=== PATIENT | male | born 1940 | race Caucasian/White ===

== ENCOUNTER → 2017-05-23 | Outpatient (CLI) | payer OTHER ==
[~2017-05-23] VITALS: Ht 175.3 cm; Wt 90.7 kg
--- NOTE | ~2017-05-23 | S ---
[facility] [place] [address] [place] [address] SURGICAL PATH RPT PROCEDURE Name: FILEOMN ECHOLS Room #: REG [facility]#: [id number] Admission: 05/23/17 Date of : 40 Discharge: Report #: [id number] Path Case #: [id number] PATHOLOGY REPORT COLLECTION DATE: 05/23/2017 RECEIVED DATE: 05/23/2017 SUBMITTING PHYS: Dr. Tommy Edgar OTHER PHYS: VICENTE Dewey SPECIMEN(S) RECEIVED: A.Ascending colon polyp B.Transverse colon polyp * * * * * * * * * * * * FINAL DIAGNOSIS: A. "Ascending colon polyp", biopsy: - Tubular adenoma; no high grade dysplasia. B. "Transverse colon polyp", biopsy: - Tubular adenoma; no high grade dysplasia. (CLW:bell; 05/25/2017) PATHOLOGIST: Mercy Busch M.D. REPORT ELECTRONICALLY SIGNED BY: Mercy Busch M.D. DATE/TIME: 05/25/2017 15:25 * * * * * * * * * * * * GROSS PATHOLOGY: A. Received in formalin labeled "Filemon Echols, ascending colon polyp," are 2 segments of clark soft tissue measuring 0.5 x 0.2 x 0.1 cm in aggregate dimensions and ranging from 0.2 to 0.3 cm in maximum dimension. The specimen is submitted entirely in cassette A1. B. Received in formalin labeled "Filemon Echols, transverse colon polyp," are 3 segments of clark soft tissue measuring 1.1 x 0.4 x 0.2 cm in aggregate dimensions and ranging from 0.2 to 0.6 cm in maximum dimension. The specimen is submitted entirely in cassette B1. (SDY; 05/24/2017) CLINICAL HISTORY: History of colon cancer, colostomy INITIAL CPT CODE(S): A; 47357 B; 19005 Professional services performed by [facility] at [address] [address] SURGICAL PATH RPT PROCEDURE Name: RIANAKATIEJACOBFILEMON Room #: REG [facility] BriannaSrinivas#: [id number] Admission: 05/23/17 Date of : 40 Discharge: Report #: [id number] Path Case #: [id number] [address], [place] [address] Technical services performed by [employer] at [address] [place] [address], [facility] [address] [address]. [facility] [address] [place] [address] PHONE: [phone] DIRECTOR: Ray Krueger M.D. * * * END OF REPORT * * *
--- NOTE | ~2017-05-23 | P ---
[facility] [address] [place] [address] PROCEDURE REPORT Name: HERON KINCAID Johnny Room #: [facility] [id number] Admission: 05/23/17 Attend Phys: Tommy Wright Discharge: Date of : 40 Report #: [id number] THIS REPORT FOR: //name// CC: Tommy Vidal Denise Young SOUZA DATE OF SERVICE: 05/23/2017 PROCEDURE PERFORMED: Colonoscopy with polypectomies. HISTORY OF PRESENT ILLNESS: The patient is a 77-year-old male with a history of colon cancer in 1995, status post resection. He has a permanent colostomy. He does not have a Kayode's pouch, he had a low anterior resection. Last colonoscopy was 3 years ago. He denies any symptoms at this time. PROCEDURE: The risks and benefits of the procedure were explained to the patient, those risks including, but not limited to bleeding, perforation, and the risk of sedation. He understood these risks and gave informed consent. Sedation was given using propofol per anesthesia. Next, a digital exam through the patient's colostomy in the left lower quadrant was done. He does have a tight stenosis there, I was able to manually dilate it somewhat using my small finger and the ostomy is somewhat regressed as well. Next, using a pediatric Fujinon colonoscope, the scope was placed in the patient's ostomy and advanced under direct vision to the cecum. The overall prep was excellent. The cecum and ileocecal valve were normal in appearance. In the ascending colon, there was a 4-mm sessile polyp, this was removed with cold forceps, otherwise normal. In the transverse colon, a 6-mm polyp was noted, this was removed by snare cautery, otherwise normal. The remaining descending and sigmoid colon were normal, again the ostomy did have a strictured opening. The scope was then withdrawn and the procedure terminated. The patient tolerated the procedure well. IMPRESSION: 1. Two small colonic polyps. 2. Narrowing of colostomy opening. RECOMMENDATIONS: 1. Await biopsy results. 2. Repeat in 3 years. [facility] [address] [place] [address] PROCEDURE REPORT Name: HERON KINCAID Room #: REG [facility] Mansi#: [id number] Admission: 05/23/17 Attend Phys: Tommy Wright Discharge: Date of : 40 Report #: [id number] Thank you for allowing me to participate in his care. <ELECTRONICALLY SIGNED> By: Tommy Edgar MD 05/25/17 1510 1050 1202 Tommy Edgar MD /nt
== END | disposition home or self-care (01) ==
LOC: GI 07:59 → EDSTATUS 08:00 → GI 08:48
DX: Z08 Encounter for follow-up examination after completed treatment for malignant neoplasm (principal); Z85.038 Personal history of other malignant neoplasm of large intestine; D12.2 Benign neoplasm of ascending colon; D12.3 Benign neoplasm of transverse colon; K56.699 Other intestinal obstruction unspecified as to partial versus complete obstruction; Z93.3 Colostomy status; Z87.891 Personal history of nicotine dependence
CPT/HCPCS: 62110; 62900

== ENCOUNTER → 2020-04-08 | Outpatient (CLI) | payer OTHER | LOC: RAD 10:51 | PROVIDERS: ATTEND Nurse Practitioner | DX: J98.4 Other disorders of lung (principal); Z87.891 Personal history of nicotine dependence; Z85.038 Personal history of other malignant neoplasm of large intestine ==

== ENCOUNTER → 2020-04-20 | Outpatient (CLI) | payer OTHER | LOC: SJCVC 10:22 | PROVIDERS: ATTEND Internal Medicine | DX: R94.31 Abnormal electrocardiogram [ECG] [EKG] (principal); I11.9 Hypertensive heart disease without heart failure; Z79.899 Other long term (current) drug therapy; Z87.891 Personal history of nicotine dependence ==

== ENCOUNTER → 2020-05-06 | Outpatient (CLI) | payer OTHER | LOC: SJCVCIMAG 07:43 | PROVIDERS: ATTEND Internal Medicine | DX: I35.1 Nonrheumatic aortic (valve) insufficiency (principal); I49.3 Ventricular premature depolarization; R00.0 Tachycardia, unspecified; E78.5 Hyperlipidemia, unspecified; Z79.899 Other long term (current) drug therapy; Z87.891 Personal history of nicotine dependence ==

== ENCOUNTER → 2020-05-28 | Outpatient (CLI) | payer OTHER | LOC: SJCVC 10:16 | PROVIDERS: ATTEND Internal Medicine | DX: I11.9 Hypertensive heart disease without heart failure (principal); I77.810 Thoracic aortic ectasia; I35.1 Nonrheumatic aortic (valve) insufficiency; E78.00 Pure hypercholesterolemia, unspecified; E78.5 Hyperlipidemia, unspecified; Z85.038 Personal history of other malignant neoplasm of large intestine; Z93.3 Colostomy status; Z87.891 Personal history of nicotine dependence; Z79.899 Other long term (current) drug therapy ==

== ENCOUNTER → 2020-07-09 | Outpatient (CLI) | payer OTHER | LOC: SJCVC 10:02 | PROVIDERS: ATTEND Internal Medicine | DX: I10 Essential (primary) hypertension (principal); E78.5 Hyperlipidemia, unspecified; Z85.038 Personal history of other malignant neoplasm of large intestine; Z98.42 Cataract extraction status, left eye; Z89.421 Acquired absence of other right toe(s); Z87.891 Personal history of nicotine dependence ==

== ENCOUNTER → 2020-09-08 | Outpatient (CLI) | payer OTHER | LOC: SJCVC 09:48 | PROVIDERS: ATTEND Internal Medicine | DX: I25.10 Atherosclerotic heart disease of native coronary artery without angina pectoris (principal); I10 Essential (primary) hypertension; Z88.6 Allergy status to analgesic agent; Z88.8 Allergy status to other drugs, medicaments and biological substances; Z87.891 Personal history of nicotine dependence; F10.21 Alcohol dependence, in remission; Z98.890 Other specified postprocedural states ==